=== PATIENT | female | born 1945 | race Caucasian/White ===

== ENCOUNTER 2018-07-23 10:39 | Day surgery (SDC) | payer MEDICARE, BC ==
[2018-07-21 11:39] VITALS: BMI 26.9
[~2018-07-23 10:39] MED LIST: LACTATED RINGERS 1,000 ML IV SCH; LIDOCAINE 1% 20 ML VIAL (10MG/ML) FOR IV START INTRADERMA PRN; MIDAZOLAM 2 MG/2 ML VIAL IV PRN
[2018-07-23 11:23] VITALS: RESP 16; TEMP 98.8
[2018-07-23] MEDS ORDERED: LIDOCAINE 1% INJ 10MG/ML (20 ML MDV) ONE (12:18)
[2018-07-23] MEDS ORDERED: PROPOFOL 10 MG/ML 20 ML VIAL IV ONE (12:18)
--- NOTE | 2018-07-23 12:30 | P.PCN ---
Date of Procedure: 07/23/18 Procedure(s) Performed: BRIEF HISTORY: Patient is a 72-year-old, pleasant, white female, scheduled for an upper endoscopy with possible dilation as a part of evaluation of dysphagia to solids for the last 1 month duration. She lost 18 pounds since onset of the symptoms.. PROCEDURE PERFORMED: Esophagogastroduodenoscopy with biopsy. PREOPERATIVE DIAGNOSIS: Dysphagia and progressive weight loss of 4 months duration. IV sedation per anesthesia. PROCEDURE: After informed consent was obtained, the patient was brought into the endoscopy unit. IV sedation was administered by Anesthesia under continuous monitoring. Initially the Olympus GIF-140 video endoscope was inserted into the mouth. Esophagus intubated without any difficulty. It was gradually advanced into the stomach and duodenum and carefully examined. The bulb and the second part of the duodenum appeared normal. The scope at this time was withdrawn to the stomach, adequately insufflated with air, and upon careful examination, mucosa of the antrum, had mild gastritis and biopsies were done from this area. The body, cardia and the fundus appeared normal. There was a large hiatal hernia noted The scope was then withdrawn into the esophagus. The GE junction was located at 30 cm from the incisors. The esophagus appeared normal. There were no erosions or ulcerations seen, no evidence of esophageal stricture. The proximal cervical esophagus was carefully examined and no obvious stricture or Zenker's diverticulum identified and the patient tolerated the procedure well. IMPRESSION: 1. Normal-appearing esophagus with no evidence of esophagitis, esophageal stricture or Zenker's diverticulum. 2. Large hiatal hernia. RECOMMENDATIONS: The findings of this examination were discussed with the patient is a family. She was advised to follow with the biopsy results. She was advised to continue with soft diet. If she has persistent dysphagia she can be further investigated with the barium esophagogram to evaluate for cricoharyngeal dysfunction as the cause of her symptoms.
[2018-07-23 13:11] VITALS: BP 107/76; PULSE 94
== END 2018-07-23 13:34 | disposition home or self-care (01) ==
LOC: ORWHC2ENDO 10:39
PROVIDERS: ATTEND Internal Medicine Gastroenterology
DX: K29.50 Unspecified chronic gastritis without bleeding (principal); K44.9 Diaphragmatic hernia without obstruction or gangrene; I10 Essential (primary) hypertension; Z79.1 Long term (current) use of non-steroidal anti-inflammatories (NSAID); Z79.899 Other long term (current) drug therapy
CPT/HCPCS: 88305; 43239; J2001; J2704

== ENCOUNTER → 2018-09-10 | Day surgery (SDC) | payer MEDICARE, BC ==
[2018-09-09 11:12] VITALS: BMI 28.0
[~2018-09-10] MED LIST changes: -LACTATED RINGERS 1,000 ML IV SCH; -LIDOCAINE 1% 20 ML VIAL (10MG/ML) FOR IV START INTRADERMA PRN; +LIDOCAINE 2% GEL 30 ML TUBE TOPICAL ONE; -MIDAZOLAM 2 MG/2 ML VIAL IV PRN
[2018-09-10 13:59] VITALS: BP 130/75; PULSE 69; RESP 16; TEMP 98.4
--- NOTE | 2018-09-18 10:50 | PCN ---
PROCEDURE NOTE DATE OF SERVICE: 09/10/2018 REQUESTING PHYSICIAN: Dr. Osorio Solomon. The patient is a 73-year-old pleasant white female, scheduled for an elective upper endoscopy as a part of evaluation of intermittent dysphagia to solids for the last several months duration. She had an upper endoscopy done in July of 2018, which revealed a [id number] size hiatal hernia, but no evidence of esophagitis. She was treated with PPI with no help. She continues to have intermittent dysphagia to solids and hence she is scheduled for an esophageal manometry to evaluate further. PROCEDURE PERFORMED: High -resolution impedance manometry. PREOPERATIVE DIAGNOSIS: Intermittent dysphagia to solids. PROCEDURE: After informed consent was obtained from the patient, she was brought into the endoscopy unit. The manometry catheter was passed from the external nostril and was gently advanced into the esophagus and stomach and study was performed by endoscopy nurse, Reyna. The study was interpreted using [place] classification. FINDINGS: 1. Lower esophageal sphincter data. Mean integral residual pressure (Mean IRP) 12 mmHg. 2. Mean residual pressure 3 mmHg. 3. Lower esophageal body: Mean DCI is 694 mmHg. Distal latency within normal limits. Peristaltic contractions 80%. 4. Impedance study: Complete liquid transit 100%, complete viscus transit 90%. INTERPRETATION: Above esophageal manometry study shows normal pressure of the lower esophagus sphincter and the motility pattern in the esophageal body is within normal limits. There is no evidence of esophageal dysmotility. MMODL / IJN: [id number] /
== END ==
LOC: ORWHC2ENDO 13:40
PROVIDERS: ATTEND Internal Medicine Gastroenterology
DX: R13.10 Dysphagia, unspecified (principal); K44.9 Diaphragmatic hernia without obstruction or gangrene
CPT/HCPCS: 91010

== ENCOUNTER → 2019-02-02 | Outpatient (CLI) | payer MEDICARE, BC ==
--- NOTE | 2019-02-02 10:08 | US ---
EXAMINATION TYPE: US venous doppler duplex LE LT DATE OF EXAM: 02/02/2019 9:21 AM COMPARISON: NONE CLINICAL HISTORY: I82.402 DVT. SIDE PERFORMED: Left TECHNIQUE: The lower extremity deep venous system is examined utilizing real time linear array sonog annie with graded compression, doppler sonography and color-flow sonography. VESSELS IMAGED: External Iliac Vein (EIV) Common Femoral Vein Deep Femoral Vein Greater Saphenous Vein * Femoral Vein Popliteal Vein Small Saphenous Vein * Proximal Calf Veins (* superficial vessels) Grayscale, color doppler, spectral doppler imaging performed of the deep veins of the left lower extr emity. There is normal flow, compressibility, vascular waveforms. Left Leg: Negative for DVT IMPRESSION: No sonographic evidence of deep venous thrombosis within the left lower extremity.
== END ==
LOC: RADUSWWP 08:50
PROVIDERS: ATTEND Family Medicine
DX: I82.402 Acute embolism and thrombosis of unspecified deep veins of left lower extremity (principal)

== ENCOUNTER → 2022-05-16 | Outpatient (CLI) | payer MEDICARE, BC ==
--- NOTE | 2022-05-16 13:04 | NM ---
EXAMINATION TYPE: NM hepatobiliary wo EF DATE OF EXAM: 05/16/2022 COMPARISON: NONE HISTORY: R 14.0, bloating TECHNIQUE: After the intravenous administration of 5 mCi Tc 99m Mebrofenin hepatobiliary scintigraphy is performed. Immediate images post injection. FINDINGS: There is prompt homogenous uptake of radiopharmaceutical within the liver. Biliary activity is detect ed by 12 minutes. Gallbladder is not detected despite delay. IMPRESSION: Nonvisualization of the gallbladder can be seen in cystic duct obstruction, correlate for possible cholecystitis
== END | disposition home or self-care (01) ==
LOC: RADNMMAIN 06:52
PROVIDERS: ATTEND Family Medicine
DX: R14.0 Abdominal distension (gaseous) (principal); R93.2 Abnormal findings on diagnostic imaging of liver and biliary tract
CPT/HCPCS: 78226; A9537